=== PATIENT | male | born 1970 | race Caucasian/White ===

== ENCOUNTER 2017-04-02 17:09 | Emergency (ER) | payer BC | END 2017-04-02 22:21 | disposition left against medical advice (07) | LOC: UCEAST 17:09 | DX: S89.90XA Unspecified injury of unspecified lower leg, initial encounter (principal); S69.90XA Unspecified injury of unspecified wrist, hand and finger(s), initial encounter; X58.XXXA Exposure to other specified factors, initial encounter; Y93.9 Activity, unspecified; Y92.9 Unspecified place or not applicable; Z53.21 Procedure and treatment not carried out due to patient leaving prior to being seen by health care provider ==

== ENCOUNTER 2017-08-09 07:05 | Emergency (ER) | payer BC ==
[2017-08-09] MEDS ORDERED: Clindamycin 900 MG IVPREMIX(* 900 MG/50 ML SDV IV ONE (07:26)
[2017-08-09] MEDS ORDERED: HYDROcodone/ACETAMIN 5-325 MG* 1 TAB PO ONE (07:30)
[2017-08-09] MEDS ORDERED: Ondansetron ODT TAB* 4 MG PO ONE (07:31)
--- NOTE | 2017-08-09 07:43 | UC ---
[facility] HPI - HPI Summary HPI Summary: Pt is a 47 yo man who comes to the ED with dental pain that started yesterday and facial swelling that started this morning. He has an appointment with the dentist in a week, but is concerned that he will need antibiotics for the infection before he sees the dentist. - History of Current Complaint Chief Complaint: EDDentalPain Stated Complaint: SWOLLEN FACE Time Seen by Provider: 08/09/17 07:07 Hx Obtained From: Patient Onset/Duration: Gradual Onset Severity: Moderate Pain Intensity: 10 Pain Scale Used: 0-10 Numeric Aggravating Factor(s): Chewing Alleviating Factor(s): Nothing Related History: Swelling - In the area below the left eye. Dental: 1 - Painful, decayed - Allergies/Home Medications Allergies/Adverse Reactions: Allergies Allergy/AdvReac Type Severity Reaction Status Date / Time amoxicillin Allergy Unknown Verified 08/09/17 07:08 Reaction Details Penicillins Allergy Anaphylatic Verified 08/09/17 07:08 Shock Home Medications: Home Medications Aspirin EC TAB* [Ecotrin EC Low Dose 81 MG*] 81 mg PO DAILY 08/09/17 [History Confirmed 08/09/17] Ergocalciferol CAP* [Drisdol CAP*] 50,000 unit PO Q7D 08/09/17 [History Confirmed 08/09/17] Verapamil SR TAB* [Calan Sr TAB*] 240 mg PO DAILY 08/09/17 [History Confirmed ] PMH/Surg Hx/FS Hx/Imm Hx Cardiovascular History: Hypertension - Surgical History Surgical History: Yes Surgery Procedure, Year, and Place: BENIGN - CYST REMOVED FROM BACK OF NECK - Social History Alcohol Use: None Substance Use Type: None Smoking Status (MU): Former Smoker Type: Cigarettes Have You Smoked in the Last Year: No Review of Systems Skin: Negative, Rash Eyes: Negative ENT: Dental Pain, Other - Left maxillary facial swelling that started this am when he woke up. Slept fitfully last night. Respiratory: Negative Cardiovascular: Negative Motor: Negative Musculoskeletal: Negative Is Patient Immunocompromised?: No All Other Systems Reviewed And Are Negative: Yes Physical Exam Triage Information Reviewed: Yes Appearance: Well-Appearing Vital Signs: Initial Vital Signs Temp 97.8 F 08/09/17 07:08 Pulse 94 08/09/17 07:08 Resp 17 08/09/17 07:08 BP 154/99 08/09/17 07:08 Pulse Ox 96 08/09/17 07:08 Vital Signs Reviewed: Yes ENT: Positive: Dental tenderness - Left upper canine with significant tenderness and carious destruction. The other upper teeth with significant carious destruction. Dental: Positive: Percussion Tenderness @ - Left upper canine., Gross Decay/ Caries @ - all upper teeth, multiple decayed to gumline., Other: - Moderate left maxillary, suborbital swelling Neck: Positive: Supple, Nontender, No Lymphadenopathy Dental Complaint Course/Dx - Course Course Of Treatment: Given 900 mg IV clindamycin, which he tolerated well. Was also given 5/325 Emmons and 4 mg Zofran orally. - Differential Dx/Diagnosis Differential Diagnosis/Dx: Dental Abscess, Dental Caries Provider Diagnoses: Dental abscess. Facial cellulitis Discharge - Sign-Out/Discharge Documenting (check all that apply): Discharge/Admit/Transfer - discharge - Discharge Plan Condition: Improved Disposition: HOME Discharge Disposition Comment: Ibupofen 600 mg every 6 hours;Follow up with dentist as scheduled next week Prescriptions: Clindamycin Cap(NF) [Clindamycin Cap 300 mg Cap(NF)] 300 mg PO Q6H #28 cap Tramadol HCl 50 mg PO Q6HR PRN 3 Days #12 tablet MDD 4 PRN Reason: pain Patient Education Materials: Dental Abscess (ED) Print Language: MONGOLIAN Forms: *Work Release Referrals: Pat Niño MD [Primary Care Provider] - Additional Instructions: Follow up with your dentist as scheduled next week. Return to the ED if you are getting worse today or if you are not better in 24 hours. - Billing Disposition and Condition Condition: IMPROVED Disposition: Home
[2017-08-09 08:54] VITALS: BP 158/100
== END 2017-08-09 08:52 | disposition home or self-care (01) ==
LOC: ED 07:05
DX: K04.7 Periapical abscess without sinus (principal); K02.9 Dental caries, unspecified; L03.211 Cellulitis of face; I10 Essential (primary) hypertension; Z88.0 Allergy status to penicillin; Z87.891 Personal history of nicotine dependence
CPT/HCPCS: 99282; A9270-GY

== ENCOUNTER 2018-05-05 11:36 | Emergency (ER) | payer BC ==
[2018-05-05 12:42] VITALS: BP 144/84
--- NOTE | 2018-05-05 13:00 | UC ---
Knee Pain HPI - HPI Summary HPI Summary: 48 you w male with no hx of gout or trauma complains of 2 days increasing discomfort to the right knee. 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 Hurts particularly when he goes down onto his right knee. Feels better when straight. Hurts to walk. X RAY: No fracture or traumatic hx of the right knee. Nurse's note: NO TRAUMA, PT AWAKE YESTERDAY WITH PAIN/REDNESS/SWELLING AND POINT TENDERNESS TO RIGHT ANTERIOR KNEE. - History of Current Complaint Chief Complaint: UCLowerExtremity Stated Complaint: KNEE PAIN Time Seen by Provider: 05/05/18 12:45 Pain Intensity: 10 - Allergies/Home Medications Allergies/Adverse Reactions: Allergies Allergy/AdvReac Type Severity Reaction Status Date / Time Penicillins Allergy Anaphylatic Verified 08/09/17 07:08 Shock PMH/Surg Hx/FS Hx/Imm Hx - Additional Past Medical History Additional PMH: PMH: left calf injury; hx of palpitations, HTN, elevated cholesterol. Previous hx of same problem with right knee. Treated with ibuprofen. SH: lives with . Non smoker. FH: denies significant family hx of disease. Previously Healthy: Yes - Surgical History Surgical History: Yes Surgery Procedure, Year, and Place: BENIGN - CYST REMOVED FROM BACK OF NECK - Social History Alcohol Use: None Substance Use Type: None Smoking Status (MU): Former Smoker Type: Cigarettes Have You Smoked in the Last Year: No Review of Systems All Other Systems Reviewed And Are Negative: Yes Constitutional: Positive: Negative Skin: Positive: Negative - no c/o erythema Eyes: Positive: Negative ENT: Positive: Other - hearing problem Respiratory: Positive: Negative Cardiovascular: Positive: Negative Gastrointestinal: Positive: Negative Genitourinary: Positive: Negative Motor: Positive: Decreased ROM - right knee Musculoskeletal: Positive: Arthralgia - right knee, Edema - slight anterior to the patella, right Is Patient Immunocompromised?: No Physical Exam - Summary Physical Exam Summary: Appearance: The patient is well-appearing, is in no pain or distress, and is well-nourished. Eyes: Conjunctiva are clear. Pupils are equal and reactive to light and accommodation. Extra ocular muscle movement is intact. ENT: The hearing is grossly normal, the pharynx is normal, and the TMs are normal. There is no muffled or hoarse voice. No stridor. Neck: The neck is supple and there is no lymphadenopathy. Respiratory: The chest is nontender to palpation and without crepitus. The lungs are clear, there are normal breath sounds, and there is no respiratory distress. No wheezes, rales or rhonchi. Cardiovascular: Heart sounds reveal a regular rate and rhythm. There are no clicks, rubs or murmurs. There are no carotid bruits or thrills. Circulation is grossly intact. Abdomen: The abdomen is soft and nontender. There is no organomegaly. Bowel sounds are present and within normal limits. No point tenderness at McBurneys point. Musculoskeletal: Strength is intact. The patient moves all extremities except right lower extremity. Examination of the right knee reveals NO quadriceps tenderness but significant tenderness over the patella. X ray is negative. No instability. Negative anteror drawer. Neurological: The patient is alert. Motor and sensory are examination grossly intact. Speech is normal. Psychological: The patient displays age appropriate behavior Skin: Negative for rashes. Triage Information Reviewed: Yes Vital Signs: Initial Vital Signs Temp 98.6 F 05/05/18 12:36 Pulse 100 05/05/18 12:36 Resp 18 05/05/18 12:36 BP 144/84 05/05/18 12:36 Pulse Ox 99 05/05/18 12:36 Vital Signs Reviewed: Yes Knee Pain Course/Dx - Course Course Of Treatment: 48 you w male with no hx of gout or trauma complains of 2 days increasing discomfort to the right knee. 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 Hurts particularly when he goes down onto his right knee. Feels better when straight. Hurts to walk. X RAY: No fracture or traumatic malalignment of the right knee. Physical exam is unremarkable with the exception of a refusal to straighten the right knee. When I passively straighten it is mildly tender. The patient can ambulate but limps slightly. Palpation of the prepatellar area is exquisitely tender. My diagnosis is prepatellar bursitis, right. I will treat him with crutches, knee immobilizer and anti-inflammatories. He will be off work until May 08, 2018. MEDICATIONS REVIEWED: Medications have been included in the original chart and reviewed. HYPERTENSION STATUS REVIEWED. Elevated BP but has current hypertension diagnosis and treatment. Patient maintains compliance with medication. Referred to PCP to evaluate current medication. Patient voices understanding. - Differential Dx/Diagnosis Differential Diagnosis/HQI/PQRI: Gout, Internal Derangement Of Knee, Patellofemoral Syndrome, Sprain, Strain, Other - prepatellar bursitis Provider Diagnosis: Bursitis Discharge - Sign-Out/Discharge Documenting (check all that apply): Patient Departure All imaging exams completed and their final reports reviewed: Yes - Discharge Plan Condition: Stable Disposition: HOME Referrals: Pat Niño MD [Primary Care Provider] - Additional Instructions: WE DISCUSSED: PLEASE SEEK CARE AT THE EMERGENCY DEPARTMENT IF SYMPTOMS WORSEN OR IF NEW SYMPTOMS DEVELOP. FOLLOW UP WITH YOUR PRIMARY CARE PHYSICIAN IF CONDITION CONTINUES BEYOND 3 DAYS WITHOUT IMPROVEMENT. We are open from 7 a.m. to 10 p.m. Call us with any questions or concerns. YOUR DIAGNOSIS IS: right knee bursitis YOUR RECOMMENDATION IS: ibuprofen 800mg three times a day. If that doesn't get rid of the pain, take acetaminophen with it. OTHER INSTRUCTIONS: NO work until May 08, 2018. I have given you a note. Don't work that day, if you are still in pain. Hypertension Discharge Instructions: Your blood pressure reading today was 144/84 indicating HYPERTENSION. Follow-up with your primary care provider within 4 weeks for blood pressure check and appropriate recommendations and treatment, as needed. For pain: Ibuprofen (Motrin and other brand names) 400-800mg PLUS acetaminophen (Tylenol and other brand names) 500mg - 1000mg every 8 hours. Maximum is 3 doses a day. If this dosage is required for more than 5 days, you should re-check with your doctor. The combination of these two over-the- counter medications can be more effective than each one taken alone. Please check with the pharmacist if you have questions about your allergies to these medications. - Billing Disposition and Condition Condition: STABLE Disposition: Home
== END 2018-05-05 14:18 | disposition home or self-care (01) ==
LOC: UCEAST 11:36
DX: M70.52 Other bursitis of knee, left knee (principal); I10 Essential (primary) hypertension; Z87.891 Personal history of nicotine dependence; Z88.0 Allergy status to penicillin
CPT/HCPCS: 99213; G0463

== ENCOUNTER 2019-02-15 08:08 | Emergency (ER) | payer BC ==
[2019-02-15 08:15] VITALS: BP 123/89
[2019-02-15] MEDS ORDERED: Ondansetron ODT TAB* 4 MG PO ONE (08:17)
--- NOTE | 2019-02-15 09:29 | UC ---
Nausea/Vomiting/Diarrhea HPI - HPI Summary HPI Summary: ALMOST 3 DAYS OF NAUSEA/VOMITING AND WATERY DIARRHEA. NO FEVER. PATIENT STATES HE HAS NOT EATEN ANYTHING SINCE THE ONSET OF SYMPTOMS. MINIMAL FLUIDS. STATES SYMPTOMS ARE GETTING A LITTLE BIT BETTER BUT IS CONCERNED BE IS STILL UNABLE TO KEEP MUCH DOWN PO. HE ALSO WOKE UP THIS MORNING WITH SHARP LEFT ANTERIOR CHEST/SHOULDER PAIN. NO RADIATION, NO SOB, NO SWEATS. STATES HE HAS HAD THIS IN THE PAST AND HAD FULL CARDIAC WORKUP WHICH IS ALWAYS BEEN NEGATIVE. 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 - History of Current Complaint Chief Complaint: UCAbdominalPain Stated Complaint: VOMITING DIARRHEA Time Seen by Provider: 02/15/19 08:17 Hx Obtained From: Patient Onset/Duration: Sudden Onset, Lasting Days, Still Present Timing: Constant Severity Initially: Moderate Severity Currently: Moderate Pain Intensity: 8 Pain Scale Used: 0-10 Numeric Character: Sharp Aggravating Factor(s): Nothing Alleviating Factor(s): Nothing Vomiting Frequency: Daily Nausea/Vomiting Duration: 2-3 days Vomiting Characteristics: Nonbilious Diarrhea Presence: Yes Diarrhea Frequency: Every 3-4 hours Diarrhea Duration: 2-3 days Diarrhea Characteristics: Watery - Allergies/Home Medications Allergies/Adverse Reactions: Allergies Allergy/AdvReac Type Severity Reaction Status Date / Time Penicillins Allergy Anaphylatic Verified 02/15/19 08:32 Shock PMH/Surg Hx/FS Hx/Imm Hx Cardiovascular History: Hypertension - Surgical History Surgical History: Yes Surgery Procedure, Year, and Place: BENIGN - CYST REMOVED FROM BACK OF NECK - Family History Known Family History: Positive: Hypertension - Social History Alcohol Use: None Substance Use Type: None Smoking Status (MU): Former Smoker Type: Cigarettes Have You Smoked in the Last Year: No Review of Systems All Other Systems Reviewed And Are Negative: Yes Constitutional: Positive: Negative Respiratory: Positive: Negative Cardiovascular: Positive: Negative Gastrointestinal: Positive: Abdominal Pain, Vomiting, Diarrhea, Nausea Genitourinary: Positive: Negative Musculoskeletal: Positive: Myalgia Physical Exam Triage Information Reviewed: Yes Appearance: Well-Appearing, No Pain Distress, Well-Nourished Vital Signs: Initial Vital Signs Temp 98.8 F 02/15/19 08:09 Pulse 96 02/15/19 08:09 Resp 16 02/15/19 08:09 BP 123/89 02/15/19 08:09 Pulse Ox 99 02/15/19 08:09 Vital Signs Reviewed: Yes Eyes: Positive: Conjunctiva Clear ENT: Positive: Hearing grossly normal, Pharynx normal Neck: Positive: Supple, Nontender, No Lymphadenopathy Respiratory Exam: Normal Cardiovascular Exam: Normal Abdomen Description: Positive: Nontender, Soft. Negative: CVA Tenderness (R), CVA Tenderness (L), Distended, Guarding Bowel Sounds: Positive: Present Musculoskeletal: Positive: ROM Intact, No Edema, Other: - DIFFUSELY TENDER LEFT ANTERIOR SHOULDER BUT NO FOCAL BONY TENDERNESS Neurological: Positive: Alert Psychological: Positive: Normal Response To Family Skin: Negative: Rashes Naus/Vom/Diarrhea Course/Dx - Course Course Of Treatment: GI SYMPTOMS CONSISTENT WITH ACUTE GASTROENTERITIS. NAUSEA WAS IMPROVED IN THE URGENT CARE WITH 4 MG OF ZOFRAN. PRESCRIPTION FOR MORE ZOFRAN SENT TO PHARMACY. ENCOURAGED PATIENT TO TAKE SMALL FREQUENT SIPS OF FLUIDS IN ORDER TO REHYDRATE. BLAND DIET. HE IS TO GO TO THE ER WITHOUT FAIL IF HIS SYMPTOMS PERSIST/WORSEN HE MAY BENEFIT FROM IV HYDRATION AND LABS. DISCUSSED HIS SHARP LEFT ANTERIOR SHOULDER PAIN. PATIENT STATES HE HAS HAD THIS SAME PAIN IN THE PAST WITH FULL CARDIAC WORKUP WHICH HAS ALWAYS BEEN NEGATIVE. MOST RECENTLY ABOUT A YEAR AGO. DISCUSSED TRANSFER TO THE ER FOR ANOTHER CARDIAC WORKUP HOWEVER THE PATIENT DECLINES TODAY. HE IS NOT CURRENTLY CONCERNED ABOUT ANY UNDERLYING CARDIAC ISSUE. I DISCUSSED WITH THE PATIENT MY CONCERN THAT THIS MAY BE A MANIFESTATION OF UNDERLYING CARDIAC DISEASE AND THAT IF HE DOES NOT HAVE A COMPLETE EVALUATION HE MAY HAVE A POOR OUTCOME WHICH COULD BE FATAL. PATIENT VERBALIZES UNDERSTANDING AND CONTINUES TO DECLINE TRANSFER. STATES HE WILL GO TO THE ER IF HIS SYMPTOMS PERSIST OR WORSEN. - Differential Dx/Diagnosis Provider Diagnosis: Acute gastroenteritis Condition At Discharge: Stable Discharge ED - Sign-Out/Discharge Documenting (check all that apply): Patient Departure All imaging exams completed and their final reports reviewed: No Studies - Discharge Plan Condition: Stable Disposition: HOME Prescriptions: Ondansetron ODT TAB* [Zofran Odt TAB*] 4 mg PO Q6H PRN #20 tab.odt PRN Reason: Nausea/Vomiting Patient Education Materials: Gastroenteritis (ED) Referrals: Pat Niño MD [Primary Care Provider] - If Needed Additional Instructions: GASTROENTERITIS: You have gastroenteritis ("intestinal flu"). This disease is usually caused by a virus. There is no specific treatment. The disease will end by itself. For now, the main danger is dehydration. Give clear liquids. Examples include Pedialyte, Gatorade, clear broth, juices, flat sodas, and jello water. Medications may be prescribed by the physician for special cases. Once tolerated, the clear liquid diet may be supplemented with rice, cereal, toast, applesauce, or bananas. GO TO THE [facility] WITHOUT FAIL if vomiting increases or blood appears in the bowel movement or vomitus; if you fail to improve, or if signs of dehydration occur (tongue and mouth become dry, lethargy). ENSURE ADEQUATE HYDRATION. CLEAR LIQUIDS, BLAND DIET. AVOID CAFFEINE, DAIRY, GREASY, SPICY FOODS. ONCE YOU ARE TOLERATING CLEAR LIQUIDS YOU CAN ADVANCE TO SIMPLE, BLAND FOODS. GO TO ED WITHOUT FAIL IF YOU DEVELOP WORSENING CHEST PAIN, SHORTNESS OF BREATH, NAUSEA, SWEATS, DIZZINESS OR ANY OTHER CONCERNING SYMPTOMS.f - Billing Disposition and Condition Condition: STABLE Disposition: Home
== END 2019-02-15 09:20 | disposition home or self-care (01) ==
LOC: UCEAST 08:08
DX: K52.9 Noninfective gastroenteritis and colitis, unspecified (principal); I10 Essential (primary) hypertension; M25.512 Pain in left shoulder; Z87.891 Personal history of nicotine dependence; Z88.0 Allergy status to penicillin
CPT/HCPCS: 99211; A9270-GY; G0463